=== PATIENT | male | born 1995 | race Caucasian/White ===

== ENCOUNTER 2018-06-09 14:35 | Emergency (ER) | payer OTHER ==
[~2018-06-09] VITALS: Ht 177.8 cm; Wt 68.2 kg
[2018-06-09 14:35] VITALS: BP 158/86
--- NOTE | 2018-06-10 07:40 | REP ---
Right hand series: Four views. History: Crush injury. Findings: Four views of the right hand demonstrate soft tissue swelling about the PIP joint of the index, long, and ring fingers. No fracture or opaque foreign body is appreciated. There is a bone island in the proximal phalanx of the thumb. Impression: Soft-tissue swelling at the PIP joint of the index, long, and ring fingers. No acute bony abnormality. Electronically Signed by Hussain Ferraro MD 06/09/2018 03:18 P
== END 2018-06-09 15:50 | disposition home or self-care (01) ==
LOC: M ED 14:35
DX: S60.221A Contusion of right hand, initial encounter (principal); W23.0XXA Caught, crushed, jammed, or pinched between moving objects, initial encounter; Y92.9 Unspecified place or not applicable; Y93.9 Activity, unspecified; Y99.0 Civilian activity done for income or pay

== ENCOUNTER 2018-11-08 02:41 | Emergency (ER) | payer OTHER ==
[~2018-11-08] VITALS: Ht 180.3 cm; Wt 75.0 kg
[2018-11-08 02:41] VITALS: BP 144/82
[2018-11-08] MEDS ORDERED: AMOX500C PO (02:46)
[2018-11-08] MEDS ORDERED: ACET-861 PO (02:46)
[2018-11-08] MEDS ORDERED: IBUP1TAB6 PO (02:46)
== END 2018-11-08 06:03 | disposition home or self-care (01) ==
LOC: M ED 02:41
DX: K13.79 Other lesions of oral mucosa (principal); Z53.21 Procedure and treatment not carried out due to patient leaving prior to being seen by health care provider

== ENCOUNTER → 2019-02-22 | Outpatient (REF) | payer OTHER ==
[~2019-02-22] MED LIST: ACET-861 PO; AMOX500C PO; IBUP1TAB6 PO
[2019-02-22 18:19] LABS: BASO # 0.1 10^3/uL (0.0-0.2); BASO % 0.8 % (0.0-1.0); EOS # 0.1 10^3/uL (0.0-0.5); EOS % 1.4 % (0.0-3.0); HEMOGLOBIN 14.6 g/dl (13.5-17.5); LYMPH # 1.6 10^3/uL (1.5-5.0); LYMPH % 24.8 % (24.0-44.0); MEAN CORPUSCULAR HEMOGLOBIN 28.3 pg (27.0-33.0); MEAN CORPUSCULAR HGB CONC 31.7 g/dl (32.0-36.5); MEAN CORPUSCULAR VOLUME 89.3 fl (80.0-96.0); MONO # 0.6 10^3/uL (0.0-0.8); MONO % 9.6 % (0.0-5.0); NEUTROPHILS # 4.1 10^3/uL (1.5-8.5); NEUTROPHILS % 62.9 % (36.0-66.0); PLATELET COUNT, AUTOMATED 273 10^3/uL (150-450); RED BLOOD COUNT 5.15 10^6/uL (4.30-6.10); WHITE BLOOD COUNT 6.5 10^3/uL (4.0-10.0)
[2019-02-22 18:35] LABS: CHOLESTEROL RISK RATIO 3.603 (<5); FREE T4 0.88 NG/DL (0.76-1.46); MAGNESIUM LEVEL 2.5 MG/DL (1.8-2.4); THYROID STIMULATING HORMONE 2.54 uIU/ML (0.358-3.740)
[2019-02-22 18:36] LABS: TOTAL 25(OH) VITAMIN D 16.4 NG/ML (30.0-100.0)
[2019-02-22 18:48] LABS: HEMOGLOBIN A1c 5.5 %
== END ==
LOC: M LAB REF 16:58
PROVIDERS: ATTEND Nurse Practitioner Family
DX: Z00.01 Encounter for general adult medical examination with abnormal findings (principal)